=== PATIENT | male | born 1990 | race African-American/Black ===

== ENCOUNTER 2018-03-25 11:22 | Emergency (ER) | payer MEDICAID, OTHER ==
[2018-03-25] MEDS: IBUPROFEN 600 MG TAB PO (11:52)
== END 2018-03-25 13:35 | disposition home or self-care (01) ==
LOC: FTE 11:22
DX: R51 Headache (principal); M79.651 Pain in right thigh; M79.652 Pain in left thigh
CPT/HCPCS: 99282; Z7502